=== PATIENT | male | born 1995 | race Caucasian/White ===

== ENCOUNTER 2024-03-11 23:33 | Emergency (ER) | payer OTHER, SELFPAY ==
[2024-03-11 23:35] VITALS: BP 159/105
--- NOTE | 2024-03-11 23:58 | ED.GENMED ---
History of Present Illness
General
Chief Complaint: Flank Pain
Time Seen by Provider: 03/11/24 23:40
History of Present Illness
History of Present Illness:
Patient is a 28-year-old man presenting to the emergency department with abdominal pain. Patient states that 2 hours ago he finished eating dinner when he was about to go to sleep had sudden onset right lower quadrant abdominal pain that radiates
to his back. Did have 1 episode of emesis. He did have Gatorade to the less red. No change with his bowel movements. No urinary problems. No fevers or chills. No prior surgeries. He was in his usual state of health prior to this. No scrotal
pain. No lightheadedness or dizziness. No syncopal events
Phy Exam
Physical Exam
Physical Exam:
GENERAL: Extremely uncomfortable
HEENT: normocephalic, extraocular movements intact, moist oral mucosa
NECK: normal inspection
RESPIRATORY: no respiratory distress, clear to auscultation bilaterally
CARDIOVASCULAR: regular rate and rhythm
ABDOMEN/: soft, non-distended, significant right lower quadrant tenderness, no rebound or guarding, left-sided CVA tenderness
EXTREMITIES: non-tender, no edema/swelling
NEUROLOGIC: awake and alert, moves all extremities
SKIN: warm
Course
Orders/Labs/Results
Orders:
Orders
03/11/24 23:56
Complete Blood Count/With Diff Urgent
Comprehensive Metabolic Panel Urgent
Urinalysis Reflex To Culture Urgent
Date Specimen was Collected: 03/12/24
Time Specimen was Collected: 00:12
Ketorolac [Toradol] 15 mg IV NOW STA
Ondansetron Injectable [Zofran] 4 mg IV NOW STA
03/12/24 00:01
CT Abd/pelvis W Iv Cont Urgent
Reason For Exam: RLQ pain
03/12/24 00:15
Urine Microscopic Reflex Cult Urgent
Urine Culture Urgent
[facility]IRA Source: U
Specimen Description:
Date Specimen was Collected: 03/12/24
Time Specimen was Collected: 00:12
Abnormal Lab Results
03/12/24
00:15
WBC 13.9 H 10^3/uL
(4.8-10.8)
MCH 31.3 H pg
(27.0-31.0)
MPV 10.8 H fL
(7.4-10.4)
Abs Immat Gran (auto) 0.2 H 10^3/uL
(0-0.05)
Absolute Neuts (auto) 9.7 H 10^3/uL
(1.4-6.5)
Immature Gran % 1.7 H %
(0-0.5)
Chloride 108 H mmol/L
(98-107)
Glucose 108 H mg/dl
(70-99)
ALT 90 H U/L
(0-50)
Ur Occult Blood Reflex 4+ A
(Negative)
Leukocyte Esterase Rfl Trace A
(Negative)
Urine RBC >100 A /HPF
(0-2)
Urine Bacteria (Reflex) Moderate A
(Negative)
03/12/24 00:15
03/12/24 00:15
Vital Signs
Initial and Last Documented VS:
Initial Vital Signs
Temp Pulse Resp BP Pulse Ox
98.4 F 81 20 159/105 99
03/11/24 23:35 03/11/24 23:35 03/11/24 23:35 03/11/24 23:35 03/11/24 23:35
Last Documented Vital Signs
Temp Pulse Resp BP Pulse Ox
98.4 F 82 15 131/87 96
03/11/24 23:35 03/12/24 00:45 03/12/24 00:45 03/12/24 00:29 03/12/24 00:45
MDM/Problems Addressed
Differential Diagnosis Includes:
Patient is a 28-year-old man presenting to the emergency department for right lower quadrant abdominal pain that started 2 hours prior to arrival. Vitals here notable for hypertension exam does show man who is uncomfortable appearing with right
lower quadrant tenderness and some left-sided CVA tenderness. Concern for appendicitis versus kidney stone versus pyelo-. Less likely to be testicular torsion or hernia as no history of. Will obtain blood work CT scan. Will give Toradol and
Zofran.
*Critical Care Note
Total Time (30-74mins, 75-104mins- exclusive of procedures): Not Applicable
Update Note
Update Note:
On reevaluation patient is much more comfortable with receiving Toradol. Urine does have blood with some leuk. Does have moderate bacteria however there are significant epithelial cells. Preliminary CT scan does show a 2 mm obstructing distal
right stone. White blood cell is slightly elevated. After shared decision making given that patient is feeling much better we will discharge home with antibiotics. Will give first dose here. Strict return precautions given.
ED Attending Note
-
Portions of this chart may have been created with voice recognition software.� Occasional wrong word or��sound alike� substitutions may have occurred due to the inherent limitations of voice recognition software.
Discharge Plan
Departure
Patient Disposition: Home (Routine Discharge)
Date of Disposition: 03/12/24
Time of Disposition: 01:52
Patient with high blood pressure during this ER visit?: No
Discharge Problem:
Kidney stone
Prescriptions:
New
cephalexin 500 mg capsule
500 mg PO QID 7 Days Qty: 28 0RF
Referrals:
Adonis Hinds Jr., MD [Active] -
Moise Aguilar MD [Family Provider] -
Activity Restrictions/Additional Instructions:
You were seen in the Emergency Department today for a kidney stone. Your urine was infected so we discharged you on antibiotics. Please follow-up with urology for further evaluation.
We would like for you to follow up with your primary care physician for further evaluation. If you experience fever, worsening of your symptoms, or develop any other new or concerning symptoms, please return to the Emergency Department immediately.
Please see the attached sheet for additional information.
Interventions
Interventions:
*Risk Screen - Suicide Last Done: 03/11/24 23:35
*Neglect/Abuse Screening Last Done: 03/11/24 23:35
ED- Fall Risk Assessment Last Done: 03/11/24 23:35
*ED COVID-19 Vaccine History Last Done: 03/11/24 23:35
XT-Pkivcn-Xfwhruflnf Assessment Last Done: 03/12/24 00:05
ED-Male Genitourinary Assessment Last Done: 03/12/24 00:05
Discharge Date and Time
Print Language: [id number]
[2024-03-12] MEDS: TORADOL 15 MG IV (00:20)
[2024-03-12] MEDS: ZOFRAN 4 MG IV (00:20)
[2024-03-12 00:28] LABS: Urine Albumin Trace (Neg - Trace); Urine Bilirubin Negative (Negative); Urine Character Slightly Cloudy (Clear); Urine Color Yellow; Urine Glucose Negative (Negative); Urine Ketone Negative (Negative); Urine Leukocyte Trace (Negative); Urine Nitrite Negative (Negative); Urine Occult Blood 4+ (Negative); Urine Urobilinogen 1+ (Neg - 1+)
[2024-03-12 00:29] VITALS: BP 131/87
[2024-03-12 00:31] LABS: % Basophils 0.5 % (0-2); % Eosinophils 1.4 % (0-6); % Immature Granulocytes 1.7 % (0-0.5); % Lymphocytes 22.2 % (20.5-51.1); % Monocytes 4.5 % (1.7-9.3); % Neutrophils 69.7 % (42.2-75.2); Absolute Basophils 0.1 10^3/uL (0-0.2); Absolute Eosinophils 0.2 10^3/uL (0-0.7); Absolute Immature Granulocytes 0.2 10^3/uL (0-0.05); Absolute Lymphocytes 3.1 10^3/uL (1.2-3.4); Absolute Monocytes 0.6 10^3/uL (0.1-0.6); Absolute Neutrophils 9.7 10^3/uL (1.4-6.5); Hematocrit 44.3 % (39.0-52.0); Mean Corp Hgb Conc. 36.1 g/dL (33.0-37.0); Mean Corpuscular Hgb 31.3 pg (27.0-31.0); Mean Corpuscular Volume 86.7 fL (80.0-94.0); Mean Platelet Volume 10.8 fL (7.4-10.4); Nucleated Red Blood Cells % 0 % (-); Platelet Count 226 10^3/uL (130-400); Red Blood Cell Count 5.11 10^6/uL (4.70-6.10); Red Cell Dist. Width 11.9 % (11.5-14.5); White Blood Cell Count 13.9 10^3/uL (4.8-10.8)
[2024-03-12 00:41] LABS: ALT (SGPT) 90 U/L (0-50); AST (SGOT) 52 U/L (17-59); Albumin 4.6 g/dl (3.5-5.0); Alkaline Phosphatase 69 U/L (38-126); Blood Urea Nitrogen 12 mg/dl (9-20); Calcium 9.5 mg/dl (8.4-10.2); Carbon Dioxide 23 mmol/L (22-30); Chloride 108 mmol/L (98-107); Glucose 108 mg/dl (70-99); Potassium 3.6 mmol/L (3.5-5.1); Sodium 141 mmol/L (135-145); Total Bilirubin 0.7 mg/dl (0.2-1.3); Total Protein 7.2 g/dl (6.3-8.2); eGFR > 60.00
[2024-03-12 00:57] LABS: Urine Mucus Moderate
[2024-03-12 00:58] LABS: Urine Amorphous Seen; Urine Red Blood Cell >100 /HPF (0-2); Urine Squamous Cell >30 /LPF (Few)
[2024-03-12 00:59] LABS: Urine Bacteria Moderate (Negative)
[2024-03-12 02:00] VITALS: BP 125/77
[2024-03-12] MEDS: KEFLEX 500 MG PO (02:01)
== END 2024-03-16 02:03 | disposition home or self-care (01) ==
LOC: EMR 23:33
PROVIDERS: EMERGENCY PHYSICIAN Student in an Organized Health Care Education/Training Program; FAMILY PHYSICIAN Internal Medicine
DX: N20.2 Calculus of kidney with calculus of ureter (principal)
CPT/HCPCS: 99285; 96374; 96375; 74177; 80053; 81003; 81015; 85025; 87086; Q9967